=== PATIENT | male | born 1960 | race Caucasian/White ===

== ENCOUNTER → 2019-05-31 | Outpatient (CLI) | payer MEDICARE ==
--- NOTE | 2019-05-31 12:40 | XR ---
EXAMINATION TYPE: XR hand complete LT DATE OF EXAM: 05/31/2019 COMPARISON: NONE HISTORY: Pain TECHNIQUE: Three views are submitted. FINDINGS: The osseous structures are intact. The joint spaces are preserved and there is no acute fracture or dislocation. Chronic appearing deformity of the fifth metacarpal compatible with remote trauma. Arth ropathy of the MCP joint of the first digit as well as the first carpal metacarpal joint. IMPRESSION: 1. No definite acute fracture or dislocation if symptoms persist, follow-up study in 7 to 10 days wo uld be suggested 2. Arthropathy. Correlate for osteoarthritis.
== END | disposition home or self-care (01) ==
LOC: RADXRMAIN 11:15
PROVIDERS: ATTEND Family Medicine
DX: M13.842 Other specified arthritis, left hand (principal)

== ENCOUNTER → 2020-09-02 | Outpatient (CLI) | payer MEDICARE ==
--- NOTE | 2020-09-02 18:54 | ECHOF ---
Referral Reason:I49.8 Other specified cardiac arrhythmias MEASUREMENTS -------- HEIGHT: 170.2 cm WEIGHT: 97.1 kg BP: IVSd: 1.0 cm (0.6 - 1.1) LVIDd: 3.9 cm (3.9 - 5.3) LVPWd: 1.2 cm (0.6 - 1.1) IVSs: 1.3 cm LVIDs: 2.7 cm LVPWs: 1.5 cm LA Diam: 4.3 cm (2.7 - 3.8) LAESV Index (A-L): 30.53 ml/m Ao Diam: 3.1 cm (2.0 - 3.7) AV Cusp: 2.1 cm (1.5 - 2.6) MV EXCURSION: 18.048 mm (> 18.000) MV EF SLOPE: 85 mm/s (70 - 150) EPSS: 0.2 cm MV E Kunal: 0.74 m/s MV DecT: 300 ms MV A Kunal: 0.74 m/s MV E/A Ratio: 1.00 RAP: 5.00 mmHg RVSP: 19.80 mmHg FINDINGS -------- Sinus rhythm. This was a technically adequate study. LV size, wall thickness and systolic function are normal, with an EF greater than 55%. The left william tricular size is normal. The right ventricle is normal in size. LA is midly dilated 29-33ml/m2. The right atrial size is normal. The aortic valve is trileaflet, and appears structurally normal. No aortic stenosis or regurgitation. The mitral valve is normal. Mild mitral regurgitation is present. The tricuspid valve appears structurally normal. Mild tricuspid regurgitation present. Right vent ricular systolic pressure is normal at < 35 mmHg. Trace/mild (physiologic) pulmonic regurgitation. The aortic root size is normal. There is no pericardial effusion. CONCLUSIONS -------- 1. LV size, wall thickness and systolic function are normal, with an EF greater than 55%. 2. The left ventricular size is normal. 3. LA is midly dilated 29-33ml/m2. 4. The aortic valve is trileaflet, and appears structurally normal. No aortic stenosis or regurgitati on. 5. Mild mitral regurgitation is present. 6. Mild tricuspid regurgitation present. 7. Trace/mild (physiologic) pulmonic regurgitation. 8. There is no pericardial effusion. IRON POURER: Liz Cote RDCS
== END ==
LOC: RADECHMAIN 11:49
PROVIDERS: ATTEND Family Medicine
DX: I08.3 Combined rheumatic disorders of mitral, aortic and tricuspid valves (principal); I51.7 Cardiomegaly
CPT/HCPCS: 93306

== ENCOUNTER → 2021-10-23 | Outpatient (CLI) | payer MEDICARE ==
--- NOTE | 2021-10-26 14:06 | US ---
EXAMINATION TYPE: US extremity nonvasc mass LT DATE OF EXAM: 10/23/2021 COMPARISON: NONE CLINICAL HISTORY: Left ankle lump; M25.572 Left ankle pain. lump left ankle for 4-6 months avascular fluid filled area left ankle within area of palpable = 4.8 x 1.1 x 2.3cm IMPRESSION:
== END | disposition home or self-care (01) ==
LOC: RADUSWWP 15:27
PROVIDERS: ATTEND Family Medicine
DX: R22.42 Localized swelling, mass and lump, left lower limb (principal)

== ENCOUNTER → 2022-07-07 | Outpatient (CLI) | payer MEDICARE ==
--- NOTE | 2022-07-07 09:30 | XR ---
EXAMINATION TYPE: XR Hip Bilateral and AP pelvis DATE OF EXAM: 07/07/2022 COMPARISON: NONE HISTORY: Pain TECHNIQUE: A single AP view of the pelvis is obtained. Two views of the bilateral hip are obtained. FINDINGS: There is no acute fracture/dislocation evident in the pelvis. The sacroiliac joints appear symmetric and unremarkable. Hypertrophic degenerative change lower lumbar spine. Postsurgical change s involving bilateral hip. Heterotopic ossification seen in the adjacent soft tissues on the right. IMPRESSION: 1. Postsurgical changes involving bilateral hips.
--- NOTE | 2022-07-07 09:34 | US ---
EXAMINATION TYPE: US thyroid st tissue head/neck DATE OF EXAM: 07/07/2022 COMPARISON: NONE CLINICAL HISTORY: E03.9 HYPOTHYROIDISM. GLAND SIZE: Right Lobe: 3.3 X 1.2 X 1.4 cm Overall Parenchyma: heterogenous Left Lobe: 4.0 X 1.2 X 1.1 cm Overall Parenchyma: heterogeneous Isthmus Thickness: 0.28 cm NODULES RIGHT: # of nodules measured on right: 0 LEFT: # of nodules measured on left: 0 ISTHMUS: # of nodules measured in the isthmus: 0 Bilateral neck scanned, prominent lymph node on left neck measured.1.7 x 0.69 x 0.86 cm with a cortic al thickness of 0.34cm IMPRESSION: 1. No thyroid nodules. 2. Heterogenous thyroid gland can be seen in setting of thyroiditis, correlate with serum markers.
== END | disposition home or self-care (01) ==
LOC: RADUSWWP 08:44
PROVIDERS: ATTEND Internal Medicine
DX: E03.9 Hypothyroidism, unspecified (principal); Z98.890 Other specified postprocedural states
CPT/HCPCS: 73521; 76536

== ENCOUNTER → 2022-07-13 | Outpatient (CLI) | payer MEDICARE ==
--- NOTE | 2022-07-13 14:17 | CT ---
EXAMINATION TYPE: CT soft tissue neck w con CT DLP: 674.7 mGycm, Automated exposure control for dose reduction was used. DATE OF EXAM: 07/13/2022 2:05 PM COMPARISON: Thyroid ultrasound 07/07/2022. CLINICAL INDICATION:Male, 61 years old with history of R59.0 LOCALIZED ENLARGED LYMPH NODES TECHNIQUE: Standard enhanced CT of the neck following intravenous administration of 70 cc of Isovue 3 00. Axial sections with coronal and sagittal reformats were obtained. FINDINGS: Brain: Visualized portions are grossly unremarkable. Orbits: Bilateral aphakia. Sinuses: Mucosal thickening of the bilateral maxillary sinus and mild mucosal thickening of the bilat eral sphenoid sinuses with significant mucosal thickening of the bilateral ethmoid sinuses and mild m ucosal thickening of the visualized bilateral frontal sinuses. The mastoid air cells are clear. Suprahyoid Neck: The oropharynx, oral cavity, parapharyngeal and retropharyngeal spaces are clear and symmetric. The nasopharynx is unremarkable. Infrahyoid Neck: The larynx, hypopharynx, and supraglottic area are clear and symmetric. Parotid Glands: Left parotid glands are unremarkable. Fatty infiltration of the right parotid gland.. Submandibular Glands: Unremarkable. Musculoskeletal: Degenerative disc disease changes of the visualized spine are present. Lymph nodes: Nonenlarged left supraclavicular lymph node. Mildly prominent right level 2A 0.9 cm jania rt axis lymph node (series 3, image 58). Mildly enlarged left level 2A lymph node measuring 1.1 cm sh ort axis (series 5 image 30). No other enlarged lymph nodes identified. Vascular structures: Visualized major arteries are patent without evidence of aneurysm. Thoracic Inlet/airway: Airway is patent. The lung apices are clear. Soft tissues/Thyroid: Thyroid and remainder of the soft tissues are unremarkable. Other: none. IMPRESSION 1. Nonspecific mildly enlarged bilateral level 2A lymph nodes, could be reactive. 2. Chronic paranasal sinus disease.
== END | disposition home or self-care (01) ==
LOC: RADCTMAIN 13:26
PROVIDERS: ATTEND Internal Medicine
DX: J34.89 Other specified disorders of nose and nasal sinuses (principal); R59.0 Localized enlarged lymph nodes
CPT/HCPCS: 70491; Q9967

== ENCOUNTER → 2023-03-16 | Outpatient (CLI) | payer MEDICARE ==
--- NOTE | 2023-03-16 09:21 | CA ---
Transthoracic Echo Report Name: Siva Cheatham Age: 62 Gender: M : 1960 Exam Date: 03/16/2023 08:12 Exam Location: [facility] Ht (in): 66 Wt (lb): 205 Ordering Physician: Glen Queen MD Attending/Referring Phys: Pantograph Transferrer Katey Potter RDCS Procedure CPT: Indications: R00.1 bradycardia Cardiac Hx: Technical Quality: Fair Contrast 1: Total Dose (mL): Contrast 2: Total Dose (mL): MEASUREMENTS (Male / Female) Normal Values 2D ECHO LV Diastolic Diameter PLAX 4.3 cm 4.2 - 5.9 / 3.9 - 5.3 cm LV Systolic Diameter PLAX 2.8 cm IVS Diastolic Thickness 1.4 cm 0.6 - 1.0 / 0.6 - 0.9 cm LVPW Diastolic Thickness 1.2 cm 0.6 - 1.0 / 0.6 - 0.9 cm LV Relative Wall Thickness 0.6 RV Internal Dim ED PLAX 3.3 cm LA Volume 55.6 cm??? 18 - 58 / 22 - 52 cm??? M-MODE Aortic Root Diameter MM 3.5 cm LA Systolic Diameter MM 3.8 cm LA Ao Ratio MM 1.1 AV Cusp Separation MM 2.3 cm DOPPLER AV Peak Velocity 222.0 cm/s AV Peak Gradient 19.7 mmHg AV Mean Velocity 146.6 cm/s AV Mean Gradient 9.8 mmHg AV Velocity Time Integral 55.2 cm AI Peak Velocity 440.9 cm/s AI Peak Gradient 77.8 mmHg AI Pressure Half Time 767.7 ms LVOT Peak Velocity 147.4 cm/s LVOT Peak Gradient 8.7 mmHg LVOT Velocity Time Integral 37.2 cm MV Area PHT 2.5 cm??? Mitral E Point Velocity 109.5 cm/s Mitral A Point Velocity 81.8 cm/s Mitral E to A Ratio 1.3 MV Deceleration Time 305.2 ms MV E' Velocity 7.4 cm/s Mitral E to MV E' Ratio 14.7 TR Peak Velocity 213.4 cm/s TR Peak Gradient 18.2 mmHg Right Ventricular Systolic Press 22.5 mmHg FINDINGS Left Ventricle Moderately increased left ventricular wall thickness. Left ventricular cavity size normal. Normal left ventricular systolic function with no obvious regional wall motion abnormalities. Left ventricular ejection fraction is estimated at 55-60 %. Right Ventricle Normal right ventricular size and function. Right Atrium Normal right atrial size. Left Atrium Normal left atrial size. Mitral Valve Structurally normal mitral valve. Mitral valve thickened. Mild mitral regurgitation. Aortic Valve Trileaflet aortic valve. Mild aortic regurgitation. Mild aortic stenosis with a peak gradient of 20 mmHg and a mean gradient of 10 mmHg. Tricuspid Valve Structurally normal tricuspid valve. Mild tricuspid regurgitation. Pulmonic Valve Trace pulmonic regurgitation. Pericardium No pericardial effusion. Aorta Normal size aortic root and proximal ascending aorta. CONCLUSIONS Moderately increased left ventricular wall thickness Left ventricular ejection fraction 55-60% Mild mitral regurgitation Mild aortic stenosis Mild tricuspid regurgitation RVSP 22 Previewed by: Dr. Schuyler Devries DO (Electronically Signed) Final Date: 16 March 2023 09:20
== END | disposition home or self-care (01) ==
LOC: RADECHMAIN 08:08
PROVIDERS: ATTEND Internal Medicine
DX: I08.3 Combined rheumatic disorders of mitral, aortic and tricuspid valves (principal); R00.1 Bradycardia, unspecified
CPT/HCPCS: 93306

== ENCOUNTER → 2023-03-16 | Outpatient (CLI) | payer MEDICARE ==
--- NOTE | 2023-03-16 22:22 | US ---
EXAMINATION TYPE: US thyroid st tissue head/neck DATE OF EXAM: 03/16/2023 COMPARISON: CT 07/13/2022 CLINICAL INDICATION: Male, 62 years old with history of R22.1 NECK NODULE ; Hard palpable right clavi roel for 2 years, getting larger TECHNIQUE: FINDINGS: Scanned within patients area of concern, right clavicle, unable to visualize any discrete abnormality by ultrasound at this time IMPRESSION: 1. No discrete ultrasound abnormality at the level of the right clavicle palpable abnormality.
== END | disposition home or self-care (01) ==
LOC: RADUSWWP 08:35
PROVIDERS: ATTEND Internal Medicine
DX: E03.9 Hypothyroidism, unspecified (principal); R22.1 Localized swelling, mass and lump, neck
CPT/HCPCS: 76536